=== PATIENT | female | born 1950 | race Caucasian/White ===

== ENCOUNTER 2020-07-04 11:01 | Inpatient (IN) | payer OTHER ==
[2020-07-04 12:27] VITALS: BMI 39.6
[2020-07-04] MEDS ORDERED: ACETAMINOPHEN 325 MG TABLET (FP) PO PRN ×2 (12:44)
[2020-07-04] MEDS ORDERED: MAGNESIUM CITRATE 300 ML BOTTLE PO PRN (12:44)
[2020-07-04] MEDS ORDERED: MAG HYDROX/AL HYDROX/SIMETH 30 ML UNIT-DOSE CUP PO PRN (12:44)
[2020-07-04] MEDS ORDERED: BISMUTH SUBSALICYLATE 262 MG/15 ML BTL PO PRN (12:44)
[2020-07-04] MEDS ORDERED: MAGNESIUM HYDROX 2400MG/30ML ORAL SUSPENSION 30 ML CUP PO PRN (12:44)
[2020-07-04] MEDS ORDERED: chlordiazePOXIDE HCL 25 MG CAPSULE PO PRN (12:44)
[2020-07-04] MEDS ORDERED: IBUPROFEN 400 MG TABLET (FP) PO PRN (12:44)
[2020-07-04] MEDS ORDERED: MENTHOL/PHENOL 1 EACH UD MM PRN (12:44)
[2020-07-04] MEDS ORDERED: ONDANSETRON *ODT* 4 MG TABLET SL PRN (12:44)
[2020-07-04] MEDS ORDERED: METHOCARBAMOL 500 MG TABLET PO PRN (12:44)
[2020-07-04] MEDS ORDERED: hydrOXYzine PAMOATE 25 MG CAPSULE (FP) PO PRN (13:47)
[2020-07-04] MEDS ORDERED: hydrOXYzine PAMOATE 25 MG CAPSULE (FP) PO SCH (14:00)
[2020-07-04 15:37] LABS: HEMATOCRIT 32.7 % (32.4-45.2); HEMOGLOBIN 10.9 GM/dL (10.7-15.3); MCH 32.3 pg (25.7-33.7); MCHC 33.3 g/dl (32.0-36.0); MEAN PLT VOLUME 8.5 fl (7.5-11.1); PLATELET COUNT 190 K/MM3 (134-434); RBC 3.37 M/mm3 (3.60-5.2); RDW 14.9 % (11.6-15.6); WHITE BLOOD COUNT 8.4 K/mm3 (4.0-10.0)
[2020-07-04 15:41] LABS: POTASSIUM 3.8 mmol/L (3.5-5.1)
[2020-07-04 15:43] LABS: ALBUMIN 3.9 g/dl (3.4-5.0); CALCIUM 8.3 mg/dL (8.5-10.1)
[2020-07-04 15:44] LABS: BLOOD UREA NITROGEN 19.3 mg/dL (7-18)
[2020-07-04 15:47] LABS: CREATININE 1.2 mg/dL (0.55-1.3)
[2020-07-04 15:48] LABS: BILIRUBIN,TOTAL 0.4 mg/dL (0.2-1); TOT PROT 7.1 g/dl (6.4-8.2)
[2020-07-04] MEDS: chlordiazePOXIDE HCL 25 MG CAPSULE PO SCH ×2 (17:58→22:11)
[2020-07-04] MEDS: ALBUTEROL SO4 HFA INHALER IH PRN (18:13)
[2020-07-04] MEDS: MELATONIN 5 MG TABLETS PO SCH (22:11)
[2020-07-04] MEDS: THIAMINE HCL 100 MG TABLET (FP) PO SCH (22:11)
[2020-07-05] MEDS: chlordiazePOXIDE HCL 25 MG CAPSULE PO SCH ×4 (06:54→22:39)
[2020-07-05] MEDS: ALBUTEROL SO4 HFA INHALER IH PRN (06:56)
[2020-07-05] MEDS: PRENATAL VITAMINS W/ FOLIC ACID TABLET (FP) PO SCH (10:08)
[2020-07-05] MEDS: THIAMINE HCL 100 MG TABLET (FP) PO SCH (22:38)
[2020-07-05] MEDS: MELATONIN 5 MG TABLETS PO SCH (22:39)
[2020-07-06] MEDS: chlordiazePOXIDE HCL 25 MG CAPSULE PO SCH ×4 (06:15→22:32)
[2020-07-06] MEDS: PRENATAL VITAMINS W/ FOLIC ACID TABLET (FP) PO SCH (10:39)
[2020-07-06] MEDS: THIAMINE HCL 100 MG TABLET (FP) PO SCH (22:32)
[2020-07-06] MEDS: MELATONIN 5 MG TABLETS PO SCH (22:32)
[2020-07-07] MEDS ORDERED: chlordiazePOXIDE HCL 10 MG CAPSULE PO PRN
[2020-07-07] MEDS: chlordiazePOXIDE HCL 10 MG CAPSULE PO SCH ×4 (05:47→22:21)
[2020-07-07] MEDS: PRENATAL VITAMINS W/ FOLIC ACID TABLET (FP) PO SCH (11:09)
[2020-07-07] MEDS: ALBUTEROL SO4 HFA INHALER IH PRN (11:10)
[2020-07-07] MEDS: MELATONIN 5 MG TABLETS PO SCH (22:21)
[2020-07-07] MEDS: THIAMINE HCL 100 MG TABLET (FP) PO SCH (22:22)
[2020-07-08] MEDS: chlordiazePOXIDE HCL 10 MG CAPSULE PO SCH ×2 (07:29→17:26)
[2020-07-08] MEDS: ALBUTEROL SO4 HFA INHALER IH PRN ×2 (10:17→17:27)
[2020-07-08] MEDS: PRENATAL VITAMINS W/ FOLIC ACID TABLET (FP) PO SCH (10:17)
[2020-07-08] MEDS: MELATONIN 5 MG TABLETS PO SCH (22:04)
[2020-07-08] MEDS: THIAMINE HCL 100 MG TABLET (FP) PO SCH (22:04)
[2020-07-09] MEDS ORDERED: chlordiazePOXIDE HCL 10 MG CAPSULE PO ONE (05:00)
[2020-07-09 09:17] VITALS: BP 121/79; PULSE 103; TEMP 97.1
[2020-07-09] MEDS: PRENATAL VITAMINS W/ FOLIC ACID TABLET (FP) PO SCH (10:19)
== END 2020-07-09 11:28 | disposition other institution (70) | DRG 897 ==
LOC: YASAS 11:01 → Y6N 12:52
PROVIDERS: ADMIT Allergy & Immunology; ATTEND Allergy & Immunology
PROC: HZ2ZZZZ Detoxification Services for Substance Abuse Treatment (ICD-10-PCS; principal; 2020-07-04)
DX: F10.230 Alcohol dependence with withdrawal, uncomplicated (principal); R44.0 Auditory hallucinations; F10.280 Alcohol dependence with alcohol-induced anxiety disorder; F10.282 Alcohol dependence with alcohol-induced sleep disorder; I10 Essential (primary) hypertension; E78.5 Hyperlipidemia, unspecified; J44.9 Chronic obstructive pulmonary disease, unspecified; R79.89 Other specified abnormal findings of blood chemistry; R00.0 Tachycardia, unspecified; Z62.810 Personal history of physical and sexual abuse in childhood; Z91.410 Personal history of adult physical and sexual abuse; Z99.89 Dependence on other enabling machines and devices; Z91.018 Allergy to other foods
CPT/HCPCS: 36415; 80053; 85027; 86780; C9803; U0003

== ENCOUNTER 2020-07-09 11:38 | Inpatient (IN) | payer OTHER ==
[2020-07-09] MEDS ORDERED: LOPERAMIDE HCL 2 MG CAPSULE PO PRN (13:50)
[2020-07-09] MEDS ORDERED: MAGNESIUM CITRATE 300 ML BOTTLE PO PRN (13:50)
[2020-07-09] MEDS ORDERED: MAGNESIUM HYDROX 2400MG/30ML ORAL SUSPENSION 30 ML CUP PO PRN (13:50)
[2020-07-09] MEDS ORDERED: NICOTINE POLACRILEX 2 MG GUM BUC PRN (13:50)
[2020-07-09] MEDS ORDERED: MENTHOL/PHENOL 1 EACH UD MM PRN (13:50)
[2020-07-09] MEDS ORDERED: ACETAMINOPHEN 325 MG TABLET (FP) PO PRN (13:50)
[2020-07-09] MEDS ORDERED: MAG HYDROX/AL HYDROX/SIMETH 30 ML UNIT-DOSE CUP PO PRN (13:50)
[2020-07-09] MEDS ORDERED: IBUPROFEN 400 MG TABLET (FP) PO PRN (13:50)
[2020-07-09] MEDS ORDERED: guaiFENesin 200 MG/10 ML 10 ML UNIT-DOSE CUPS PO PRN (13:50)
[2020-07-09] MEDS ORDERED: P-EPHED 60MG/TRIPROLIDI 2.5MG TABLET PO PRN (13:50)
[2020-07-09] MEDS ORDERED: hydrOXYzine PAMOATE 25 MG CAPSULE (FP) PO PRN (13:50)
[2020-07-09] MEDS: MELATONIN 5 MG TABLETS PO SCH (21:46)
[2020-07-09] MEDS: THIAMINE HCL 100 MG TABLET (FP) PO SCH (21:46)
[2020-07-09] MEDS: ATORVASTATIN CA 10 MG TABLET (FP) PO SCH (21:46)
[2020-07-10] MEDS ORDERED: NICOTINE 7 MG/24 HOURS TOPICAL PATCH TD SCH (10:00)
[2020-07-10] MEDS: LISINOPRIL 5 MG TABLET PO SCH (10:46)
[2020-07-10] MEDS: PRENATAL VITAMINS W/ FOLIC ACID TABLET (FP) PO SCH (10:46)
[2020-07-10] MEDS: ALBUTEROL SO4 HFA INHALER IH PRN (10:47)
[2020-07-10] MEDS: NALTREXONE HCL 50 MG TABLET PO SCH (13:58)
[2020-07-10] MEDS: ATORVASTATIN CA 10 MG TABLET (FP) PO SCH (21:22)
[2020-07-10] MEDS: THIAMINE HCL 100 MG TABLET (FP) PO SCH (21:22)
[2020-07-10] MEDS: MELATONIN 5 MG TABLETS PO SCH (21:22)
[2020-07-11] MEDS: LISINOPRIL 5 MG TABLET PO SCH (10:16)
[2020-07-11] MEDS: PRENATAL VITAMINS W/ FOLIC ACID TABLET (FP) PO SCH (10:16)
[2020-07-11] MEDS: NALTREXONE HCL 50 MG TABLET PO SCH (10:16)
[2020-07-11] MEDS: ALBUTEROL SO4 HFA INHALER IH PRN (10:17)
[2020-07-11] MEDS: MELATONIN 5 MG TABLETS PO SCH (21:39)
[2020-07-11] MEDS: THIAMINE HCL 100 MG TABLET (FP) PO SCH (21:39)
[2020-07-11] MEDS: ATORVASTATIN CA 10 MG TABLET (FP) PO SCH (21:39)
[2020-07-12] MEDS: PRENATAL VITAMINS W/ FOLIC ACID TABLET (FP) PO SCH (10:24)
[2020-07-12] MEDS: NALTREXONE HCL 50 MG TABLET PO SCH (10:24)
[2020-07-12] MEDS: LISINOPRIL 5 MG TABLET PO SCH (10:25)
[2020-07-12] MEDS: ALBUTEROL SO4 HFA INHALER IH PRN (11:54)
[2020-07-12] MEDS: MELATONIN 5 MG TABLETS PO SCH (21:17)
[2020-07-12] MEDS: THIAMINE HCL 100 MG TABLET (FP) PO SCH (21:17)
[2020-07-12] MEDS: ATORVASTATIN CA 10 MG TABLET (FP) PO SCH (21:17)
[2020-07-13 07:23] VITALS: BP 131/71; PULSE 81; TEMP 97.3
[2020-07-13] MEDS ORDERED: PT OWN MED DRAWER 7, Y5N ONE (08:57)
[2020-07-13] MEDS ORDERED: NALTREXONE MICROSPHERES (VIVITROL) 380 MG DISP.SYRIN IM ONE (09:00)
[2020-07-13] MEDS: PRENATAL VITAMINS W/ FOLIC ACID TABLET (FP) PO SCH (10:19)
[2020-07-13] MEDS: LISINOPRIL 5 MG TABLET PO SCH (10:20)
[2020-07-13] MEDS: ALBUTEROL SO4 HFA INHALER IH PRN (10:22)
== END 2020-07-13 12:10 | disposition home or self-care (01) | DRG 895 ==
LOC: YASAS 11:38 → Y3W 11:39
PROVIDERS: ADMIT Allergy & Immunology; ATTEND Allergy & Immunology
PROC: HZ42ZZZ Group Counseling for Substance Abuse Treatment, Cognitive-Behavioral (ICD-10-PCS; principal; 2020-07-09)
DX: F10.20 Alcohol dependence, uncomplicated (principal); Z68.41 Body mass index [BMI] 40.0-44.9, adult; I10 Essential (primary) hypertension; J44.9 Chronic obstructive pulmonary disease, unspecified; J45.909 Unspecified asthma, uncomplicated; R00.0 Tachycardia, unspecified; Z91.018 Allergy to other foods; E66.01 Morbid (severe) obesity due to excess calories
CPT/HCPCS: J2315